=== PATIENT | male | born 1990 ===

== ENCOUNTER 2017-06-20 10:46 | Emergency (ER) | payer BC, MEDICAID ==
[2017-06-20 11:08] VITALS: BP 154/95; PULSE 100; RESP 20; TEMP 100; O2SAT 97
--- NOTE | 2017-06-20 11:48 | ED PDOC ---
HPI: CCC, URI, Sore Throat Time Seen by Provider: 06/20/17 11:00 Chief Complaint (Nursing): Cough, Cold, Congestion Chief Complaint (Provider): Cough, fever History Per: Patient History/Exam Limitations: no limitations Onset/Duration Of Symptoms: Days (x4) Current Symptoms Are (Timing): Still Present Associated Symptoms: Fever, Sore Throat, Cough, Sputum Additional Complaint(s): Patrick is a 27 y/o male with a history of epilepsy who presents to the ED for evaluation of fever with associated productive cough, headache, and congestion, onset 4 days ago. Cough is productive of brown phlegm. Denies vomiting and diarrhea. Patient has been taking Tylenol, Dayquil, and Nyquil without relief. He denies receiving a flu shot this year. PMD: Dr. Gokul Avelar Past Medical History Reviewed: Historical Data, Nursing Documentation, Vital Signs Vital Signs: Last Vital Signs Temp 100 F H 06/20/17 11:03 Pulse 100 H 06/20/17 11:03 Resp 20 06/20/17 11:03 BP 154/95 H 06/20/17 11:03 Pulse Ox 97 06/20/17 13:28 - Medical History PMH: Seizures Denies: Chronic Kidney Disease - Surgical History Surgical History: No Surg Hx - Family History Family History: States: Unknown Family Hx - Social History Current smoker - smoking cessation education provided: Yes Alcohol: None Drugs: Denies - Immunization History Hx Tetanus Toxoid Vaccination: No Hx Influenza Vaccination: No Hx Pneumococcal Vaccination: No - Home Medications Home Medications: Ambulatory Orders Medication Instructions Recorded LORazepam [Ativan] 1 mg PO PRN PRN 09/14/16 Levetiracetam [Keppra] 2 tab PO HS 09/14/16 Levetiracetam [Keppra] 750 mg PO DAILY 09/14/16 Ondansetron [Zofran] 4 mg PO Q8H #10 tab 09/14/16 - Allergies Allergies/Adverse Reactions: Allergies Allergy/AdvReac Type Severity Reaction Status Date / Time No Known Allergies Allergy Verified 03/06/15 23:50 Review of Systems ROS Statement: Except As Marked, All Systems Reviewed And Found Negative Constitutional: Positive for: Fever ENT: Positive for: Nose Discharge, Nose Congestion Respiratory: Positive for: Cough, Sputum Gastrointestinal: Negative for: Nausea, Vomiting, Diarrhea Neurological: Positive for: Headache Physical Exam - Reviewed Nursing Documentation Reviewed: Yes Vital Signs Reviewed: Yes - Physical Exam Appears: Positive for: Non-toxic, No Acute Distress Head Exam: Positive for: ATRAUMATIC, NORMAL INSPECTION, NORMOCEPHALIC Skin: Positive for: Normal Color, Warm, Dry Eye Exam: Positive for: EOMI, Normal appearance, PERRL ENT: Positive for: Normal ENT Inspection, Nasal Congestion Neck: Positive for: Normal, Supple Cardiovascular/Chest: Positive for: Regular Rate, Rhythm. Negative for: Murmur Respiratory: Positive for: Normal Breath Sounds. Negative for: Accessory Muscle Use, Respiratory Distress Gastrointestinal/Abdominal: Positive for: Normal Exam, Soft. Negative for: Tenderness Extremity: Positive for: Normal ROM. Negative for: Deformity Neurologic/Psych: Positive for: Alert, Oriented - ECG O2 Sat by Pulse Oximetry: 97 (RA) Pulse Ox Interpretation: Normal Medical Decision Making Medical Decision Making: Time: 11:26 Initial Plan: --Chest x-ray to rule out pneumonia --Influenza A B stat --Patient given Toradol 60 mg IM Time: 12:47 Chest x-ray: FINDINGS: LUNGS: There are low lung volumes which may be related to poor inspiratory effort. There is left basilar atelectasis. No focal consolidation. PLEURA: No significant pleural effusion identified. No pneumothorax apparent. CARDIOVASCULAR: Normal. OSSEOUS STRUCTURES: No significant abnormalities. VISUALIZED UPPER ABDOMEN: Normal. OTHER FINDINGS: None. IMPRESSION: Left basilar atelectasis. No lobar pneumonia. --Labs reviewed, negative flu a/b --Patient is medically stable and will be discharged home. explained to patient results of xray Clinical Impression: Viral illness Counseling was provided and all questions were answered regarding diagnosis and need for follow up with PMD. There is agreement to discharge plan. Return if symptoms persist or worsen. Scribe Attestation: Documented by Sarah Toney, acting as a scribe for Vannessa Pradhan MD Provider Scribe Attestation: All medical record entries made by the Scribe were at my direction and personally dictated by me. I have reviewed the chart and agree that the record accurately reflects my personal performance of the history, physical exam, medical decision making, and the department course for this patient. I have also personally directed, reviewed, and agree with the discharge instructions and disposition. Disposition - Clinical Impression Clinical Impression: Viral illness - Patient ED Disposition Is Patient to be Admitted: No Counseled Patient/Family Regarding: Studies Performed, Diagnosis, Need For Followup - Disposition Disposition: Routine/Home Disposition Time: 13:20 Condition: IMPROVED Additional Instructions: follow up with your primary doctor in 1-2 days take motrin for pain return to the ED with any worsening or concerning symptoms Instructions: Viral Syndrome (ED) Forms: [facility] (Tajik)
--- NOTE | 2017-06-20 12:48 | RAD ---
HISTORY: Cough COMPARISON: 05/14/2015. TECHNIQUE: Chest PA and lateral FINDINGS: LUNGS: There are low lung volumes which may be related to poor inspiratory effort. There is left basilar atelectasis. No focal consolidation. PLEURA: No significant pleural effusion identified. No pneumothorax apparent. CARDIOVASCULAR: Normal. OSSEOUS STRUCTURES: No significant abnormalities. VISUALIZED UPPER ABDOMEN: Normal. OTHER FINDINGS: None. IMPRESSION: Left basilar atelectasis. No lobar pneumonia.
== END 2017-06-20 13:59 | disposition home or self-care (01) ==
LOC: H.ER 10:46
DX: B34.9 Viral infection, unspecified (principal)
CPT/HCPCS: 71020; 87804; 96372; 99282; J1885

== ENCOUNTER 2017-06-22 17:01 | Emergency (ER) | payer MEDICAID ==
[2017-06-22 17:21] VITALS: BP 127/80; PULSE 86; RESP 16; TEMP 99.1; O2SAT 98
--- NOTE | 2017-06-22 17:54 | ED PDOC ---
HPI: Eye Injury/Pain Time Seen by Provider: 06/22/17 17:35 Chief Complaint (Nursing): Eye Problem Chief Complaint (Provider): Right eye irritation, redness and drainage x 1 day History Per: Patient History/Exam Limitations: no limitations Onset/Duration Of Symptoms: Days Current Symptoms Are (Timing): Still Present Injury To Eye?: No Quality: "Pain" Wears Contact Lens?: No Associated Symptoms: Itching, Discharge From Eye. denies: Decreased Vision, Swelling Past Medical History Reviewed: Historical Data, Nursing Documentation, Vital Signs Vital Signs: Last Vital Signs Temp 99.1 F 06/22/17 17:18 Pulse 86 06/22/17 17:18 Resp 16 06/22/17 17:18 BP 127/80 06/22/17 17:18 Pulse Ox 98 06/22/17 17:18 - Medical History PMH: Seizures Denies: Chronic Kidney Disease - Surgical History Surgical History: No Surg Hx - Family History Family History: States: Unknown Family Hx - Living Arrangements Living Arrangements: With Family - Social History Current smoker - smoking cessation education provided: No Alcohol: None Drugs: Denies - Immunization History Hx Tetanus Toxoid Vaccination: No Hx Influenza Vaccination: No Hx Pneumococcal Vaccination: No - Home Medications Home Medications: Ambulatory Orders Medication Instructions Recorded LORazepam [Ativan] 1 mg PO PRN PRN 09/14/16 Levetiracetam [Keppra] 2 tab PO HS 09/14/16 Levetiracetam [Keppra] 750 mg PO DAILY 09/14/16 Ondansetron [Zofran] 4 mg PO Q8H #10 tab 09/14/16 Polymyxin/Trimethoprim Sulfate 1 drop XX Q6H 10 Days bottle 06/22/17 [Polytrim Ophth Soln] - Allergies Allergies/Adverse Reactions: Allergies Allergy/AdvReac Type Severity Reaction Status Date / Time No Known Allergies Allergy Verified 06/22/17 17:18 Review of Systems Constitutional: Negative for: Fever, Chills Eyes: Positive for: Pain, Redness. Negative for: Vision Change Physical Exam - Reviewed Nursing Documentation Reviewed: Yes Vital Signs Reviewed: Yes - Physical Exam Appears: Positive for: Well, Non-toxic, No Acute Distress Head Exam: Positive for: ATRAUMATIC, NORMAL INSPECTION, NORMOCEPHALIC Skin: Positive for: Normal Color, Warm, DRY Eye Exam: Positive for: EOMI, PERRL, Conjunctival injection. Negative for: Normal appearance ENT: Positive for: Normal ENT Inspection Neck: Positive for: Normal Respiratory: Negative for: Accessory Muscle Use, Respiratory Distress Back: Positive for: Normal Inspection Extremity: Positive for: Normal ROM. Negative for: Tenderness Neurologic/Psych: Positive for: Alert, Oriented - ECG O2 Sat by Pulse Oximetry: 98 Disposition - Clinical Impression Clinical Impression: Conjunctivitis Counseled Patient/Family Regarding: Diagnosis, Need For Followup, Rx Given - Disposition Disposition: Routine/Home Disposition Time: 17:54 Condition: GOOD Prescriptions: Polymyxin/Trimethoprim Sulfate [Polytrim Ophth Soln] 1 drop XX Q6H 10 Days bottle Instructions: Conjunctivitis (ED) Print Language: FAROESE
== END 2017-06-22 18:07 | disposition home or self-care (01) ==
LOC: H.ER 17:01
DX: H10.9 Unspecified conjunctivitis (principal)

== ENCOUNTER 2017-06-26 15:58 | Emergency (ER) | payer MEDICAID ==
[2017-06-26 16:03] VITALS: BMI 21.5
[2017-06-26 16:12] VITALS: TEMP 98.6
[2017-06-26] MEDS ORDERED: Sodium Chloride 0.9% 1,000 ML IV STA (16:30)
--- NOTE | 2017-06-26 16:35 | ED PDOC ---
HPI: Seizure Time Seen by Provider: 06/26/17 16:09 Chief Complaint (Nursing): Seizure Chief Complaint (Provider): Dizziness History Per: Patient History/Exam Limitations: no limitations Recent Seizure Activity Began: Unknown Precipitating Factor(s): Missed Dose Of Anti-seizure Medication Additional History Per: EMS Additional Complaint(s): Patrick is a 27 y/o male who was brought to the ED via EMS after experiencing dizziness and generalized shaking at home. Patient did not have seizure, but states he felt as if he was about to have one. Of note, he is on Depakote (2 tabs of 500 mg BID; total of 2000mg per day), but has been off medication for 1 week due to insurance issues. Patient has also had a fever and cough for 1 week , taking Tylenol for fever control. No chest pain, shortness of breath, nausea, or vomiting but he did have 2 episodes of diarrhea this morning. He denies recent alcohol or drug use. Last seizure occurred 2 years ago. Patient states that Depakote usually works well to control his seizures, was on Keppra in the past without control. He reports having an upcoming appointment with an assistance program to reinstate his insurance. Neurologist: Dr. Gokul Miller Past Medical History Reviewed: Historical Data, Nursing Documentation, Vital Signs Vital Signs: Last Vital Signs Temp 98.6 F 06/26/17 16:09 Pulse 65 06/26/17 20:10 Resp 18 06/26/17 20:10 BP 135/79 06/26/17 20:10 Pulse Ox 95 06/26/17 20:10 - Medical History PMH: Seizures Denies: Chronic Kidney Disease - Surgical History Other surgeries: Thumb surgery - Family History Family History: States: Unknown Family Hx - Social History Current smoker - smoking cessation education provided: No Alcohol: None Drugs: Denies - Immunization History Hx Tetanus Toxoid Vaccination: No Hx Influenza Vaccination: No Hx Pneumococcal Vaccination: No - Home Medications Home Medications: Ambulatory Orders Medication Instructions Recorded LORazepam [Ativan] 1 mg PO PRN PRN 09/14/16 Polymyxin/Trimethoprim Sulfate 1 drop XX Q6H 10 Days bottle 06/22/17 [Polytrim Ophth Soln] Divalproex [Fabrizio FAJARDO(*BID*)] 1,000 mg PO BID #120 ect 06/26/17 Divalproex [Depakote DR] 500 mg PO BID 06/26/17 - Allergies Allergies/Adverse Reactions: Allergies Allergy/AdvReac Type Severity Reaction Status Date / Time No Known Allergies Allergy Verified 06/22/17 17:18 Review of Systems ROS Statement: Except As Marked, All Systems Reviewed And Found Negative Constitutional: Positive for: Fever Cardiovascular: Negative for: Chest Pain Respiratory: Positive for: Cough Gastrointestinal: Positive for: Diarrhea (x 2 episodes). Negative for: Nausea, Vomiting Neurological: Positive for: Dizziness (and generalized body shaking) Physical Exam - Reviewed Nursing Documentation Reviewed: Yes Vital Signs Reviewed: Yes - Physical Exam Appears: Positive for: Non-toxic, No Acute Distress Head Exam: Positive for: ATRAUMATIC, NORMOCEPHALIC Skin: Positive for: Normal Color, Warm, Dry Eye Exam: Positive for: EOMI, Normal appearance, PERRL Neck: Positive for: Normal, Painless ROM, Supple Cardiovascular/Chest: Positive for: Regular Rate, Rhythm. Negative for: Murmur Respiratory: Positive for: Normal Breath Sounds. Negative for: Respiratory Distress Gastrointestinal/Abdominal: Positive for: Normal Exam, Soft. Negative for: Tenderness Extremity: Positive for: Normal ROM. Negative for: Pedal Edema, Deformity Neurologic/Psych: Positive for: Alert, Oriented. Negative for: Motor/Sensory Deficits - Laboratory Results Result Diagrams: 06/26/17 16:39 06/26/17 16:39 - ECG ECG Rhythm: Positive for: Normal QRS, Normal ST Segment, Sinus Rhythm. Negative for: ST/T Changes Rate: 79 O2 Sat by Pulse Oximetry: 99 (RA) Pulse Ox Interpretation: Normal - Progress Re-evaluation Time: 21:01 Condition: Re-examined, Improved Medical Decision Making Medical Decision Making: Initial Impression: Dizziness, URI Differentials include URI, pneumonia, and protocol for sub-clinical seizures Time: 16:30 Initial Plan: --Ativan --CMP --Urine drug screen --Magnesium --Alcohol serum --CBC w/ differential --CXR 2 views --Sodium chloride IV 1000 ml at 1000 mls/hr --Valproate 2,000 mg IV --Pending reevaluation TIME: 16:47 CHEST X-RAY: FINDINGS: Examination limited by habitus. LUNGS: No focal consolidation. Please note that chest x-ray has limited sensitivity for the detection of pulmonary masses. PLEURA: No significant pleural effusion identified. No definite pneumothorax . CARDIOVASCULAR: The cardiomediastinal silhouette appears within normal limits of size. OSSEOUS STRUCTURES: No acute osseous abnormality identified. VISUALIZED UPPER ABDOMEN: Unremarkable. OTHER FINDINGS: None. IMPRESSION: No focal consolidation, significant pleural effusion, or definite pneumothorax identified. Time: 18:00 --Patient is resting with stable vital signs. IV infusing. Scribe Attestation: Documented by Sarah Toney, acting as a scribe for Rosa Maria Paige MD Provider Scribe Attestation: All medical record entries made by the Scribe were at my direction and personally dictated by me. I have reviewed the chart and agree that the record accurately reflects my personal performance of the history, physical exam, medical decision making, and the department course for this patient. I have also personally directed, reviewed, and agree with the discharge instructions and disposition. Disposition - Clinical Impression Clinical Impression: Recurrent seizures - Patient ED Disposition Is Patient to be Admitted: No Doctor Will See Patient In The: Office Counseled Patient/Family Regarding: Studies Performed, Diagnosis, Need For Followup - Disposition Referrals: Sergey Davis MD [Staff Provider] - Disposition: Routine/Home Disposition Time: 21:01 Condition: GOOD Additional Instructions: Take your medications as instructed. Follow up with your neurologist in 2-3 days. Prescriptions: Divalproex [Depakojeaneth FAJARDO(*BID*)] 1,000 mg PO BID #120 ect Instructions: Recurrent Seizures in Adults (ED)
[2017-06-26] MEDS ORDERED: VALPROATE IVPB ONE (16:36)
[2017-06-26] MEDS ORDERED: SODIUM CHLORIDE 0.9% IVPB ONE (16:36)
[2017-06-26 16:46] LABS: BASO # 0.1 K/uL (0.0-0.2); BASO % 0.9 % (0.0-2.0); EOS # 0.2 K/uL (0.0-0.7); HEMATOCRIT 46.4 % (35.0-51.0); LYMPH # 1.9 K/uL (1.0-4.3); LYMPH % 20.1 % (20.0-40.0); MEAN CELL VOLUME 93.3 fl (80.0-94.0); MEAN CORPUSCULAR HEMOGLOBIN 31.9 pg (27.0-31.0); MEAN CORPUSCULAR HGB CONC 34.1 g/dL (33.0-37.0); MEAN PLATELET VOLUME 7.3 fl (7.2-11.7); MONO # 0.7 K/uL (0.0-0.8); MONO % 7.9 % (0.0-10.0); NEUT # 6.4 K/uL (1.8-7.0); NEUT % 69.1 % (50.0-75.0); RED CELL DISTRIBUTION WIDTH 12.3 % (11.5-14.5); WHITE BLOOD COUNT 9.3 K/uL (4.8-10.8)
--- NOTE | 2017-06-26 16:48 | RAD ---
HISTORY: fever cough COMPARISON: Chest x-ray performed 06/20/17 TECHNIQUE: Chest PA and lateral FINDINGS: Examination limited by habitus. LUNGS: No focal consolidation. Please note that chest x-ray has limited sensitivity for the detection of pulmonary masses. PLEURA: No significant pleural effusion identified. No definite pneumothorax . CARDIOVASCULAR: The cardiomediastinal silhouette appears within normal limits of size. OSSEOUS STRUCTURES: No acute osseous abnormality identified. VISUALIZED UPPER ABDOMEN: Unremarkable. OTHER FINDINGS: None. IMPRESSION: No focal consolidation, significant pleural effusion, or definite pneumothorax identified.
[2017-06-26 16:53] LABS: ALCOHOL SERUM < 10 mg/dl (0-10); ALKALINE PHOSPHATASE 113 U/L (38-126); ALT/SGPT 52 U/L (21-72); AST/SGOT 31 U/L (17-59); BILIRUBIN,TOTAL 0.5 mg/dl (0.2-1.3); BLOOD UREA NITROGEN 14 mg/dl (9-20); CALCIUM 9.8 mg/dL (8.4-10.2); CARBON DIOXIDE 23 mmol/L (22-30); CHLORIDE 106 mmol/L (98-107); GFR AFRICAN-AMERICAN > 60; GLUCOSE,RANDOM 104 mg/dL (75-110); MAGNESIUM 2.1 MG/DL (1.6-2.3); POTASSIUM 3.9 MMOL/L (3.6-5.0); SODIUM 147 mmol/l (132-148); TOTAL PROTEIN 9.2 G/DL (6.3-8.2)
[2017-06-26 20:12] VITALS: RESP 18
[2017-06-26 21:21] VITALS: BP 127/64; PULSE 67; O2SAT 97
--- NOTE | 2017-06-28 12:51 | CARD ---
APPROVED REPORT EKG Measurement Heart [id number] <Conclusion> Normal sinus rhythm Minimal voltage criteria for LVH, may be normal variant Borderline ECG
== END 2017-06-26 21:21 | disposition home or self-care (01) ==
LOC: H.ER 15:58
DX: J06.9 Acute upper respiratory infection, unspecified (principal); R42 Dizziness and giddiness
CPT/HCPCS: 71020; 80053; 80320; 83735; 85025; 93005; 96365; 99285; J2060; J7040

== ENCOUNTER 2017-10-19 07:27 | Emergency (ER) | payer MEDICAID, OTHER ==
[2017-10-19 07:27] VITALS: BMI 21.5
[2017-10-19 07:40] VITALS: BP 145/92; PULSE 86; RESP 16; TEMP 97; O2SAT 97
[2017-10-19] MEDS ORDERED: Sodium Chloride 0.9% 1,000 ML IV STA (07:50)
--- NOTE | 2017-10-19 08:01 | ED PDOC ---
HPI: General Adult Time Seen by Provider: 10/19/17 07:44 Chief Complaint (Nursing): Dizziness/Lightheaded Chief Complaint (Provider): Muscle Twitches History Per: Patient History/Exam Limitations: no limitations Onset/Duration Of Symptoms: Hrs (this morning) Current Symptoms Are (Timing): Still Present Additional Complaint(s): Patrick is a 27 y/o male with a history of epilepsy and muscle twitches who presents to the ED complaining of muscle twitches since this morning. Patient states he usually takes Ativan for symptoms but ran out. He also complains of lightheadedness and dizziness. Patient has not been taking his epilepsy medication for the past 4 months because he ran out and has no insurance. He denies nausea, vomiting, seizure, numbness, tingling, pain, or tongue bite. PMD: None Provided Past Medical History Reviewed: Historical Data, Nursing Documentation, Vital Signs Vital Signs: Last Vital Signs Temp 97 F L 10/19/17 07:37 Pulse 86 10/19/17 07:37 Resp 16 10/19/17 07:37 BP 145/92 H 10/19/17 07:37 Pulse Ox 97 10/19/17 09:57 - Medical History PMH: Seizures (epilepsy) Denies: Chronic Kidney Disease - Family History Family History: States: Unknown Family Hx - Social History Current smoker - smoking cessation education provided: Yes - Immunization History Hx Tetanus Toxoid Vaccination: No Hx Influenza Vaccination: No Hx Pneumococcal Vaccination: No - Home Medications Home Medications: Ambulatory Orders Medication Instructions Recorded LORazepam [Ativan] 1 mg PO PRN PRN 09/14/16 Polymyxin/Trimethoprim Sulfate 1 drop XX Q6H 10 Days bottle 06/22/17 [Polytrim Ophth Soln] Divalproex [Depakote DR(*BID*)] 1,000 mg PO BID #120 ect 06/26/17 Divalproex [Depakote DR] 500 mg PO BID 06/26/17 - Allergies Allergies/Adverse Reactions: Allergies Allergy/AdvReac Type Severity Reaction Status Date / Time No Known Allergies Allergy Verified 06/22/17 17:18 Review of Systems ROS Statement: Except As Marked, All Systems Reviewed And Found Negative Constitutional: Negative for: Other (pain) Gastrointestinal: Negative for: Nausea, Vomiting Neurological: Positive for: Dizziness, Other (lightheadedness, muscle twitches) . Negative for: Numbness, Seizures Physical Exam - Reviewed Nursing Documentation Reviewed: Yes Vital Signs Reviewed: Yes - Physical Exam Appears: Positive for: Well, Non-toxic, No Acute Distress Skin: Positive for: Normal Color, Warm, Dry Eye Exam: Positive for: EOMI, Normal appearance, PERRL Cardiovascular/Chest: Positive for: Regular Rate, Rhythm. Negative for: Murmur Respiratory: Positive for: Normal Breath Sounds. Negative for: Respiratory Distress Extremity: Positive for: Normal ROM Neurologic/Psych: Positive for: Alert, Oriented. Negative for: Motor/Sensory Deficits - Laboratory Results Result Diagrams: 10/19/17 08:20 10/19/17 08:20 Interpretation Of Abn Labs: no acute - ECG ECG: Positive for: Interpreted By Me, Viewed By Me ECG Rhythm: Positive for: Normal QRS, Nonspecific Changes (same as old) O2 Sat by Pulse Oximetry: 97 (RA) Pulse Ox Interpretation: Normal - CT Scan/US ct Other Rad Studies (CT/US): Read By Radiologist Other Rad Interpretation: no acute - Progress ED Course And Treament: 1029: Stable. AAOx3. Pain free. Tolerated po. Fu with pcp. Noncompliant with seizure meds. Fu with clinic and neuro. Medical Decision Making Medical Decision Making: Time: 7:50 Initial Impression: Chronic Muscle Twitches Initial Plan: --CT Head w/o Contrast --EKG --CMP --CBC --Ativan IV Time: 8:21 --Troponin I ordered Scribe Attestation: Documented by Demar Castro, acting as a scribe for Dr. Vaughn Mahoney MD. Provider Scribe Attestation: All medical record entries made by the Scribe were at my direction and personally dictated by me. I have reviewed the chart and agree that the record accurately reflects my personal performance of the history, physical exam, medical decision making, and the department course for this patient. I have also personally directed, reviewed, and agree with the discharge instructions and disposition. Disposition - Clinical Impression Clinical Impression: Dizziness, Acute tic disorder - Patient ED Disposition Is Patient to be Admitted: No Counseled Patient/Family Regarding: Studies Performed, Diagnosis, Need For Followup - Disposition Referrals: Devin Mabry MD [Medical Doctor] - 11/18/17 [facility] [Outside] - 10/21/17 Disposition: Routine/Home Disposition Time: 10:34 Condition: STABLE Additional Instructions: Return if not better in 3 days. Instructions: Dizziness (ED), Tic Disorder (ED) Print Language: KOREAN
[2017-10-19 09:02] LABS: BASO % 0.5 % (0.0-2.0); EOS # 0.2 K/uL (0.0-0.7); EOS % 3.6 % (0.0-4.0); HEMOGLOBIN 14.5 g/dL (12.0-18.0); LYMPH # 1.3 K/uL (1.0-4.3); LYMPH % 27.5 % (20.0-40.0); MEAN CELL VOLUME 93.2 fl (80.0-94.0); MEAN CORPUSCULAR HGB CONC 33.3 g/dL (33.0-37.0); MEAN PLATELET VOLUME 8.3 fl (7.2-11.7); MONO # 0.4 K/uL (0.0-0.8); MONO % 9.2 % (0.0-10.0); NEUT # 2.8 K/uL (1.8-7.0); NEUT % 59.2 % (50.0-75.0); NRBC % 0.1 % (0.0-0.0); RBC 4.68 Mil/uL (4.40-5.90); RED CELL DISTRIBUTION WIDTH 12.8 % (11.5-14.5); WHITE BLOOD COUNT 4.8 K/uL (4.8-10.8)
[2017-10-19 09:12] LABS: ALB/GLOB RATIO 1.1 (1.0-2.1); ALBUMIN 3.9 g/dL (3.5-5.0); ALT/SGPT 59 U/L (21-72); AST/SGOT 31 U/L (17-59); CALCIUM 8.8 mg/dL (8.4-10.2); GFR AFRICAN-AMERICAN > 60; GFR NON-AFRICAN AMERICAN > 60
[2017-10-19 09:28] LABS: BLOOD UREA NITROGEN 14 mg/dl (9-20)
--- NOTE | 2017-10-19 10:10 | CT ---
PROCEDURE: CT HEAD WITHOUT CONTRAST. HISTORY: headache COMPARISON: None available. TECHNIQUE: Axial computed tomography images were obtained through the head/brain without intravenous contrast. Radiation dose: Total exam DLP = mGy-cm. At this time the dose is not available. When this becomes available supplemental report can be issued This CT exam was performed using one or more of the following dose reduction techniques: Automated exposure control, adjustment of the mA and/or kV according to patient size, and/or use of iterative reconstruction technique. FINDINGS: HEMORRHAGE: No intracranial hemorrhage. BRAIN: No mass effect or edema. No atrophy or chronic microvascular ischemic changes. VENTRICLES: Unremarkable. No hydrocephalus. CALVARIUM: Unremarkable. PARANASAL SINUSES: Ethmoidal sinusitis rightward nasal septal deviation present MASTOID AIR CELLS: Unremarkable as visualized. No inflammatory changes. OTHER FINDINGS: None. IMPRESSION: No intracranial hemorrhage or mass effect. Ethmoidal sinusitis with rightward nasal septal deviation present.
--- NOTE | 2017-10-20 09:40 | CARD ---
APPROVED REPORT EKG Measurement Heart [id number] NM [id number] [id number] <Conclusion> Normal sinus rhythm ST elevation, consider early repolarization, pericarditis, or injury Abnormal ECG
== END 2017-10-19 10:55 | disposition home or self-care (01) ==
LOC: H.ER 07:27
DX: R42 Dizziness and giddiness (principal); F95.9 Tic disorder, unspecified; G40.909 Epilepsy, unspecified, not intractable, without status epilepticus; J32.2 Chronic ethmoidal sinusitis; J34.2 Deviated nasal septum
CPT/HCPCS: 70450; 80053; 84484; 85025; 93005; 96361; 96374; 99283; J2060; J7040